=== PATIENT | male | born 1980 | race Two or more races ===

== ENCOUNTER 2016-10-22 15:54 | Emergency (ER) | payer SELFPAY ==
[2016-10-22 16:05] VITALS: BP 160/96
[2016-10-22] MEDS ORDERED: DOXY100C2 PO (16:22)
--- NOTE | 2016-10-22 16:22 | PHYS DOC ---
Past Medical History Past Medical History: No Pertinent History Past Surgical History: No Surgical History Alcohol Use: Occasionally Drug Use: None Adult General Chief Complaint Chief Complaint: LOWER EXT PAIN HPI HPI Patient is a 36 year old male presents to the emergency department with pain and swelling and redness to his right lower leg. Patient states this is been occurring for the last 2 days. He has not sure what has happened. He does have swelling noted into his right foot. Peripheral pulses are 2+ cap refill brisk less than 2 seconds no broken open skin noted. Does feel warm to touch tender with no drainage or discharge. Patient is unsure when his last tetanus immunization occurred. Review of Systems Review of Systems Constitutional: Denies fever or chills [] Eyes: Denies change in visual acuity, redness, or eye pain [] HENT: Denies nasal congestion or sore throat [] Respiratory: Denies cough or shortness of breath [] Cardiovascular: No additional information not addressed in HPI [] GI: Denies abdominal pain, nausea, vomiting, bloody stools or diarrhea [] : Denies dysuria or hematuria [] Musculoskeletal: Denies back pain or joint pain [] Integument: Denies rash or skin lesions. Redness warmth tenderness and swelling to the right lower leg. Neurologic: Denies headache, focal weakness or sensory changes [] Endocrine: Denies polyuria or polydipsia [] Current Medications Current Medications Current Medications Medications (Trade) Dose Ordered Sig/Mt Start Time Stop Time Status Last Admin Dose Admin Diphtheria/ Tetanus/Acell Pertussis (Boostrix) 0.5 ml ONCE ONCE 10/22/16 16:30 10/22/16 16:31 Allergies Allergies Allergies Coded Allergies Type Severity Reaction Last Updated Verified No Known Drug Allergies 10/22/16 No Physical Exam Physical Exam Constitutional: Well developed, well nourished, no acute distress, non-toxic appearance. [] HENT: Normocephalic, atraumatic, bilateral external ears normal, oropharynx moist, no oral exudates, nose normal. [] Eyes: PERRLA, EOMI, conjunctiva normal, no discharge. [] Neck: Normal range of motion, no tenderness, supple, no stridor. [] Cardiovascular:Heart rate regular rhythm, no murmur [] Lungs & Thorax: Bilateral breath sounds clear to auscultation [] Skin: Warm, dry, no erythema, no rash. Redness warmth tenderness and swelling noted to the right lower leg. No open wound noted there does appear to be some black and blue areas. Peripheral pulses 2+ cap refill brisk less than 2 seconds good sensation noted to the toes. Back: No tenderness Extremities: No tenderness, no cyanosis, no clubbing, ROM intact, no edema. [] Neurologic: Alert and oriented X 3, normal motor function, normal sensory function, no focal deficits noted. [] Psychologic: Affect normal, judgement normal, mood normal. [] Current Patient Data Vital Signs Vital Signs Date Time Temp Pulse Resp B/P (MAP) Pulse Ox O2 Delivery O2 Flow Rate FiO2 10/22/16 16:05 98.2 72 16 98 Room Air 98.2 EKG EKG [] Radiology/Procedures Radiology/Procedures [] Course & Med Decision Making Course & Med Decision Making Pertinent Labs and Imaging studies reviewed. (See chart for details) Patient will be updated with a tetanus immunization here in the emergency department. He'll be placed on doxycycline 1 tablet twice a day for the next 10 days. Recommended elevation as much as possible. Also recommended Epsom salt soaks. Patient will be discharged home in stable condition signs and symptoms to return back to emergency department has been provided. [] Dragon Disclaimer Dragon Disclaimer This electronic medical record was generated, in whole or in part, using a voice recognition dictation system. Departure Departure Impression: Primary Impression: Cellulitis of right lower leg Disposition: HOME, SELF-CARE Condition: STABLE Referrals: NO PCP (PCP) Patient Instructions: Cellulitis, [id number] Additional Instructions: Activity as tolerated. Elevation as much as possible. Epsom salt soaks to the right leg 5 times a day for 20 minutes at a time. Medication as prescribed. Tylenol or ibuprofen for pain and discomfort. Follow-up the primary care physician next 3-5 days. Return back to emergency department sign symptoms of become worse. Scripts Doxycycline Hyclate (DOXYCYCLINE HYCLATE) 100 Mg Capsule 1 CAP PO BID, #20 CAP Prov: NATALIA MARTÍNEZ APRN 10/22/16 NATALIA MARTÍNEZ APRN Oct 22, 2016 16:22
[2016-10-22] MEDS ORDERED: DIPHTH,PERTUSS(ACELL),TET TOX 0.5 ML DISP.SYRIN. VAX IM ONE (16:30)
== END 2016-10-22 16:40 | disposition home or self-care (01) ==
LOC: ER 15:54
DX: L03.115 Cellulitis of right lower limb (principal); Z23 Encounter for immunization
CPT/HCPCS: 90471; 90715; 99283-25